=== PATIENT | male | born 2000 | race Two or more races ===

== ENCOUNTER 2020-06-30 16:28 | Emergency (ER) | payer SELFPAY ==
[2020-06-30] MEDS ORDERED: Ondansetron 4 MG Tab.DIS PO ONE (17:14)
[2020-06-30] MEDS ORDERED: Bacitracin Oint 1 GM U/D Packet TOP ONE (17:14)
[2020-06-30] MEDS ORDERED: Lidocaine 1% with EPINEPHrine 1:100,000 50 ML MDV INJECT ONE (17:14)
[2020-06-30] MEDS ORDERED: Acetaminophen 325 MG Tab PO ONE (17:14)
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
[2020-06-30 17:16] VITALS: BP 125/81; PULSE 71
--- NOTE | 2020-07-02 10:10 | CR ---
Wrist Comp Min 3V Lt CLINICAL HISTORY: Fall FINDINGS: There is a nondisplaced fracture through the waist of the scaphoid. IMPRESSION: Nondisplaced scaphoid fracture
== END 2020-06-30 19:45 | disposition home or self-care (01) ==
LOC: JP.ED 16:28
DX: S09.90XA Unspecified injury of head, initial encounter (principal); S62.002A Unspecified fracture of navicular [scaphoid] bone of left wrist, initial encounter for closed fracture; S01.81XA Laceration without foreign body of other part of head, initial encounter; F17.210 Nicotine dependence, cigarettes, uncomplicated; Z88.0 Allergy status to penicillin; V00.131A Fall from skateboard, initial encounter; Y93.51 Activity, roller skating (inline) and skateboarding; Y92.830 Public park as the place of occurrence of the external cause
CPT/HCPCS: 12013; 73110; 99284; A9270; 99283

== ENCOUNTER 2020-10-21 07:13 | Emergency (ER) | payer MEDICAID ==
[2020-10-21 07:46] VITALS: BP 129/84; PULSE 111
[2020-10-21] MEDS ORDERED: Acetaminophen 325 MG Tab PO ONE (08:05)
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
--- NOTE | 2020-10-22 10:06 | CR ---
Knee 3V Lt CLINICAL HISTORY: Pain, trauma FINDINGS: No acute fracture or dislocation is noted. There are no osseous lesions. Articular surfaces are smooth. Impression: Negative
== END 2020-10-21 08:36 | disposition home or self-care (01) ==
LOC: JP.ED 07:13
DX: S86.912A Strain of unspecified muscle(s) and tendon(s) at lower leg level, left leg, initial encounter (principal); F17.210 Nicotine dependence, cigarettes, uncomplicated; Z88.0 Allergy status to penicillin; Y04.0XXA Assault by unarmed brawl or fight, initial encounter
CPT/HCPCS: 73562; 99282; 99283; A9270

== ENCOUNTER 2021-02-19 22:17 | Emergency (ER) | payer MEDICAID ==
[2021-02-19 22:28] VITALS: BP 138/94; PULSE 104
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
== END 2021-02-19 23:23 | disposition home or self-care (01) ==
LOC: JP.ED 22:17
DX: K02.9 Dental caries, unspecified (principal); Z88.0 Allergy status to penicillin
CPT/HCPCS: 99282

== ENCOUNTER 2021-06-27 15:55 | Emergency (ER) | payer MEDICAID ==
[2021-06-27] MEDS ORDERED: Sodium Chloride 0.9% 10 ML Syringe FLUSH PRN (16:17)
[2021-06-27] MEDS ORDERED: Haloperidol Lactate 5 MG/ML SDV IVPUSH ONE (16:17)
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
[2021-06-27] MEDS ORDERED: Sodium Chloride 0.9% 1,000 ML IV SCH (16:30)
[2021-06-27 18:18] VITALS: BP 121/71; PULSE 76
== END 2021-06-27 18:21 | disposition home or self-care (01) ==
LOC: JP.ED 15:55
DX: R11.2 Nausea with vomiting, unspecified (principal); R10.13 Epigastric pain; E87.6 Hypokalemia; Z88.0 Allergy status to penicillin; Z72.0 Tobacco use; Z20.822 Contact with and (suspected) exposure to COVID-19
CPT/HCPCS: 36415; 80053; 83690; 85025; 87635; 96374; 99284; J1630; J7030; U0002

== ENCOUNTER 2021-07-17 02:14 | Emergency (ER) | payer MEDICAID ==
[2021-07-17] MEDS ORDERED: LORazepam 2 MG/ML SDV ONE (02:47)
[2021-07-17] MEDS ORDERED: HYDROmorphone 0.5 MG/0.5 ML Syringe ONE (02:48)
[2021-07-17] MEDS ORDERED: Ondansetron 4 MG/2 ML SDV ONE (02:49)
[2021-07-17] MEDS ORDERED: Sodium Chloride 0.9% 1,000 ML IV ONE ×2 (02:50→03:50)
[2021-07-17] MEDS ORDERED: Ondansetron 4 MG/2 ML SDV IVPUSH ONE (02:53)
[2021-07-17] MEDS ORDERED: LORazepam 2 MG/ML SDV IVPUSH ONE (03:00)
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
== END 2021-07-17 07:34 | disposition home or self-care (01) ==
LOC: JP.ED 02:14
DX: F45.8 Other somatoform disorders (principal); R11.2 Nausea with vomiting, unspecified; Z88.0 Allergy status to penicillin
CPT/HCPCS: 36415; 80053; 80305; 81001; 83690; 85027; 96374; 96375; 99284; J2060; J2405; J7030

== ENCOUNTER 2023-04-27 15:16 | Emergency (ER) | payer MEDICAID ==
[2023-04-27 16:47] VITALS: BP 146/95; PULSE 104
[2023-04-27] MEDS ORDERED: Sodium Chloride 0.9% 10 ML Syringe FLUSH PRN (17:04)
[2023-04-27] MEDS ORDERED: Sodium Chloride 0.9% 1,000 ML IV ONE (17:05)
[2023-04-27] MEDS ORDERED: Ondansetron 4 MG/2 ML SDV IVPUSH ONE (17:05)
[2023-04-27 17:16] LABS: BASOPHILS ABSOLUTE AUTO 0.09 K/uL (0.00-0.10); BASOPHILS PERCENT AUTO 0.3 % (0.1-1.3); EOSINOPHILS PERCENT AUTO 0.1 % (0.0-5.4); HEMATOCRIT 52.9 % (38.4-49.7); IMMATURE GRAN ABSOLUTE AUTO 0.19 K/uL (0.00-0.23); IMMATURE GRAN PERCENT AUTO 0.7 % (0.0-0.7); LYMPHOCYTES ABSOLUTE AUTO 1.35 K/uL (0.8-3.3); LYMPHOCYTES PERCENT AUTO 5.1 % (11.4-47.7); MEAN CORPUSCULAR HGB CONC 34.2 g/dL (31.6-35.5); MEAN CORPUSCULAR VOLUME 90.7 fL (81.4-99.0); MONOCYTES ABSOLUTE AUTO 1.48 K/uL (0.20-0.90); MONOCYTES PERCENT AUTO 5.5 % (3.3-12.6); NEUTROPHILS ABSOLUTE AUTO 23.59 K/uL (1.0-7.6); NEUTROPHILS PERCENT AUTO 88.3 % (40.0-78.1); PLATELET COUNT,PLT 328 K/uL (130-375); RED BLOOD CELL COUNT 5.83 M/uL (4.14-5.76); WHITE BLOOD CELL COUNT,WBC 26.7 K/uL (3.2-11.0)
[2023-04-27 17:17] LABS: EOSINOPHILS ABSOLUTE AUTO 0.02 K/uL (0.00-0.40); HEMOGLOBIN 18.1 g/dL (12.9-16.9)
[2023-04-27 17:37] LABS: A/G RATIO 1.2 (1.2-2.2); ALANINE AMINOTRANSFERASE,ALT 34 U/L (12-78); ALBUMIN 5.1 g/dL (3.4-5.0); ALKALINE PHOSPHATASE 116 U/L (46-116); ASPARTATE AMNIOTRANSFERASE,AST 33 U/L (15-37); BILIRUBIN TOTAL 1.2 mg/dL (0.2-1.0); BLOOD UREA NITROGEN,BUN 17 mg/dL (7-18); CALCIUM 10.7 mg/dL (8.5-10.1); CHLORIDE,CL 88 mmol/L (100-108); CREATININE 1.6 mg/dL (0.8-1.3); EST CRCL DRUG DOSING (CG) 55.28 mL/min; ESTIMATED GFR 62 mL/min (>60); GLUCOSE RANDOM 176 mg/dL (74-106); POTASSIUM,K 4.3 mmol/L (3.6-5.2); PROTEIN TOTAL,TP 9.3 g/dL (6.4-8.2); SODIUM,NA 138 mmol/L (140-148)
[2023-04-27 17:44] LABS: ANION GAP 39.3 mmol/L (5.0-14.0); CARBON DIOXIDE,CO2 15 mmol/L (21-32)
[2023-04-27 18:01] LABS: HEMOGLOBIN A1C 5.2 % (4.5-6.2)
[2023-04-27 18:03] LABS: BASE EXCESS VENOUS -8.7 mm/L; BICARBONATE,VENOUS 14.2 mmol/L; CARBOXYHEMOGLOBIN 2.3 % (0.0-1.6); METHEMOGLOBIN 0.9 %; O2 SATURATION VENOUS 85.1; OXYHEMOGLOBIN 82.4 %; PCO2 VENOUS 24.9 mm/Hg; PH,VENOUS 7.375 (7.350-7.450); TOTAL HEMOGLOBIN 17.7 g/dL (13.5-18.0)
[2023-04-27] MEDS ORDERED: Metoclopramide 10 MG/2 ML SDV IV ONE (18:28)
[2023-04-27] MEDS ORDERED: Sodium Chloride 0.9% 50 ML IV SCH (18:30)
[2023-04-27] MEDS ORDERED: Iopamidol 612 MG/ML 100 ML Bottle IV SCH (18:30)
[2023-04-27] MEDS ORDERED: Sodium Chloride 0.9% 1,000 ML IV SCH (18:30)
[2023-04-27 18:50] LABS: APPEARANCE,URINE CLEAR (CLEAR); BILIRUBIN,URINE MODERATE (NEGATIVE); COLOR,URINE YELLOW (YELLOW); GLUCOSE,URINE NEGATIVE (NEGATIVE); KETONES,URINE 80 mg/dL (NEGATIVE); LEUKOCYTE ESTERASE,URINE NEGATIVE (NEGATIVE); NITRITE,URINE NEGATIVE (NEGATIVE); OCCULT BLOOD,URINE TRACE-LYSED (NEGATIVE); PH,URINE 5.5 (5.0-8.0); PROTEIN,URINE 100 mg/dL (NEGATIVE); UROBILINOGEN,URINE 0.2 EU/dL (0.2-1.0)
[2023-04-27 18:55] LABS: WBC,URINE 0-5 (0-5)
[2023-04-27 18:56] LABS: AMORPHOUS SEDIMENT,URINE FEW; BACTERIA,URINE FEW; EPITHELIAL CELLS,URINE RARE; MUCUS,URINE RARE
[2023-04-27] MEDS ORDERED: Metoclopramide 10 MG Tab PO ONE (20:26)
== END 2023-04-27 21:01 | disposition home or self-care (01) ==
LOC: JP.ED 15:16
DX: A08.4 Viral intestinal infection, unspecified (principal); F17.210 Nicotine dependence, cigarettes, uncomplicated; Z88.0 Allergy status to penicillin; Z79.899 Other long term (current) drug therapy
CPT/HCPCS: 36415; 74177; 80053; 81001; 82803; 83036; 83605; 85025; 87040; 87635; 96361; 96374; 96375; 99284; A9270; J2405; J2765; J3490; J7030; Q9967; U0002

== ENCOUNTER 2023-07-05 12:46 | Emergency (ER) | payer MEDICAID ==
[2023-07-05] MEDS ORDERED: Sodium Chloride 0.9% 1,000 ML IV ONE ×2 (14:31→15:14)
[2023-07-05] MEDS ORDERED: Metoclopramide 10 MG/2 ML SDV IVPUSH ONE (14:31)
[2023-07-05] MEDS ORDERED: Sodium Chloride 0.9% 10 ML Syringe FLUSH PRN (14:31)
[2023-07-05 14:42] LABS: BASOPHILS ABSOLUTE AUTO 0.06 K/uL (0.00-0.10); BASOPHILS PERCENT AUTO 0.3 % (0.1-1.3); HEMATOCRIT 54.6 % (38.4-49.7); IMMATURE GRAN ABSOLUTE AUTO 0.12 K/uL (0.00-0.23); IMMATURE GRAN PERCENT AUTO 0.5 % (0.0-0.7); LYMPHOCYTES ABSOLUTE AUTO 2.59 K/uL (0.8-3.3); LYMPHOCYTES PERCENT AUTO 11.2 % (11.4-47.7); MEAN CORPUSCULAR HEMOGLOBIN 31.2 pg (31.6-35.5); MEAN CORPUSCULAR HGB CONC 36.4 g/dL (31.6-35.5); MEAN CORPUSCULAR VOLUME 85.6 fL (81.4-99.0); MONOCYTES ABSOLUTE AUTO 1.51 K/uL (0.20-0.90); MONOCYTES PERCENT AUTO 6.5 % (3.3-12.6); NEUTROPHILS PERCENT AUTO 81.5 % (40.0-78.1); PLATELET COUNT,PLT 351 K/uL (130-375); RED BLOOD CELL COUNT 6.38 M/uL (4.14-5.76); WHITE BLOOD CELL COUNT,WBC 23.1 K/uL (3.2-11.0)
[2023-07-05 14:44] LABS: HEMOGLOBIN 19.9 g/dL (12.9-16.9)
[2023-07-05 15:05] LABS: ALANINE AMINOTRANSFERASE,ALT 20 U/L (12-78); ALBUMIN 4.9 g/dL (3.4-5.0); ALKALINE PHOSPHATASE 98 U/L (46-116); ASPARTATE AMNIOTRANSFERASE,AST 20 U/L (15-37); BILIRUBIN TOTAL 0.7 mg/dL (0.2-1.0); BLOOD UREA NITROGEN,BUN 50 mg/dL (7-18); C-REACTIVE PROTEIN 0.68 mg/dL (0.0-0.3); CALCIUM 10.2 mg/dL (8.5-10.1); CARBON DIOXIDE,CO2 27 mmol/L (21-32); CHLORIDE,CL 83 mmol/L (100-108); EST CRCL DRUG DOSING (CG) 17.75 mL/min; ESTIMATED GFR 15 mL/min (>60); GLUCOSE RANDOM 114 mg/dL (74-106); POTASSIUM,K 3.8 mmol/L (3.6-5.2); PROTEIN TOTAL,TP 9.6 g/dL (6.4-8.2); SODIUM,NA 125 mmol/L (140-148)
[2023-07-05 15:06] LABS: ANION GAP 18.8 mmol/L (5.0-14.0)
[2023-07-05 15:07] LABS: CREATININE 5.1 mg/dL (0.8-1.3)
[2023-07-05 16:56] LABS: MAGNESIUM 3.1 mg/dL (1.8-2.4); PHOSPHORUS 7.7 mg/dL (2.5-4.9)
[2023-07-05 17:27] LABS: BILIRUBIN,URINE MODERATE (NEGATIVE); COLOR,URINE YELLOW (YELLOW); GLUCOSE,URINE NEGATIVE (NEGATIVE); KETONES,URINE TRACE mg/dL (NEGATIVE); LEUKOCYTE ESTERASE,URINE NEGATIVE (NEGATIVE); NITRITE,URINE NEGATIVE (NEGATIVE); OCCULT BLOOD,URINE TRACE-INTACT (NEGATIVE); PROTEIN,URINE >=300 mg/dL (NEGATIVE); UROBILINOGEN,URINE 0.2 EU/dL (0.2-1.0)
[2023-07-05 17:36] LABS: CALCIUM 8.6 mg/dL (8.5-10.1); EST CRCL DRUG DOSING (CG) 22.08 mL/min; POTASSIUM,K 3.8 mmol/L (3.6-5.2)
[2023-07-05 17:38] LABS: ANION GAP 14.8 mmol/L (5.0-14.0); CREATININE 4.1 mg/dL (0.8-1.3)
[2023-07-05 17:41] LABS: AMORPHOUS SEDIMENT,URINE RARE; APPEARANCE,URINE CLOUDY (CLEAR); BACTERIA,URINE MANY; EPITHELIAL CELLS,URINE FEW; MUCUS,URINE MODERATE
[2023-07-05 17:42] LABS: AMPHETAMINES SCREEN, URINE NEGATIVE (NEGATIVE); BARBITURATE SCREEN,URINE NEGATIVE (NEGATIVE); BENZODIAZEPINES SCREEN,URINE NEGATIVE (NEGATIVE); METHADONE SCREEN, URINE NEGATIVE (NEGATIVE); METHAMPHETAMINES SCREEN, URINE NEGATIVE (NEGATIVE); OXYCODONE SCREEN,URINE NEGATIVE (NEGATIVE); PROPOXYPHENE SCREEN,URINE NEGATIVE (NEGATIVE); THC SCREEN,URINE 50 NG/ML PRESUMPTIVE POSITIVE (NEGATIVE)
[2023-07-05 18:04] LABS: PROTEIN,URINE RANDOM 238.7 mg/dL (6.0-11.9)
[2023-07-05 18:05] LABS: CREATININE,URINE RAND 502.5 mg/dL (20.0-370.0)
[2023-07-05 18:28] VITALS: BP 117/78; PULSE 90
== END 2023-07-05 18:28 | disposition home or self-care (01) ==
LOC: JP.ED 12:46
DX: N17.9 Acute kidney failure, unspecified (principal); Q63.1 Lobulated, fused and horseshoe kidney; R80.9 Proteinuria, unspecified; Z88.0 Allergy status to penicillin; F17.210 Nicotine dependence, cigarettes, uncomplicated
CPT/HCPCS: 36415; 74176; 80048; 80053; 80305; 81001; 82550; 82570; 83605; 83735; 84100; 84156; 84300; 84550; 85025; 86140; 86160; 87086; 96361; 96374; 99284; J2765; J3490; J7030

== ENCOUNTER 2024-01-14 22:44 | Emergency (ER) | payer MEDICAID ==
[2024-01-15 01:36] LABS: BASOPHILS PERCENT AUTO 0.1 % (0.1-1.3); HEMOGLOBIN 17.4 g/dL (12.9-16.9); IMMATURE GRAN ABSOLUTE AUTO 0.04 K/uL (0.00-0.23); IMMATURE GRAN PERCENT AUTO 0.2 % (0.0-0.7); LYMPHOCYTES ABSOLUTE AUTO 1.57 K/uL (0.8-3.3); LYMPHOCYTES PERCENT AUTO 9.6 % (11.4-47.7); MEAN CORPUSCULAR HEMOGLOBIN 31.1 pg (31.6-35.5); MEAN CORPUSCULAR HGB CONC 34.8 g/dL (31.6-35.5); MEAN CORPUSCULAR VOLUME 89.4 fL (81.4-99.0); MONOCYTES ABSOLUTE AUTO 1.01 K/uL (0.20-0.90); MONOCYTES PERCENT AUTO 6.2 % (3.3-12.6); NEUTROPHILS ABSOLUTE AUTO 13.76 K/uL (1.0-7.6); NEUTROPHILS PERCENT AUTO 83.9 % (40.0-78.1); PLATELET COUNT,PLT 340 K/uL (130-375); RED BLOOD CELL COUNT 5.59 M/uL (4.14-5.76); WHITE BLOOD CELL COUNT,WBC 16.4 K/uL (3.2-11.0)
[2024-01-15] MEDS: Sodium Chloride 0.9% 1,000 ML IV SCH ×2 (01:36→02:39)
[2024-01-15 01:47] LABS: A/G RATIO 1.2 (1.2-2.2); ALANINE AMINOTRANSFERASE,ALT 26 U/L (12-78); ALKALINE PHOSPHATASE 93 U/L (46-116); ASPARTATE AMNIOTRANSFERASE,AST 25 U/L (15-37); BILIRUBIN TOTAL 0.7 mg/dL (0.2-1.0); BLOOD UREA NITROGEN,BUN 13 mg/dL (7-18); CALCIUM 10.7 mg/dL (8.5-10.1); CARBON DIOXIDE,CO2 27 mmol/L (21-32); CHLORIDE,CL 95 mmol/L (100-108); CREATININE 1.3 mg/dL (0.8-1.3); ESTIMATED GFR 79 mL/min (>60); GLUCOSE RANDOM 141 mg/dL (74-106); POTASSIUM,K 3.4 mmol/L (3.6-5.2); PROTEIN TOTAL,TP 9.3 g/dL (6.4-8.2); SODIUM,NA 140 mmol/L (140-148)
[2024-01-15 01:54] LABS: ANION GAP 21.4 mmol/L (5.0-14.0); C-REACTIVE PROTEIN < 0.50 mg/dL (<0.50)
[2024-01-15 01:55] LABS: BASOPHILS ABSOLUTE AUTO 0.02 K/uL (0.00-0.10)
[2024-01-15] MEDS: Magnesium Oxide 400 MG Tab PO ONE (02:34)
[2024-01-15] MEDS ORDERED: Ondansetron 4 MG/2 ML SDV IVPUSH ONE (02:52)
[2024-01-15] MEDS: Sodium Chloride 0.9% 80 ML IV STA (04:19)
[2024-01-15] MEDS: Iopamidol 612 MG/ML 100 ML Bottle IV STA (04:19)
[2024-01-15 04:45] VITALS: BP 119/68; PULSE 89
[2024-01-15 05:04] LABS: APPEARANCE,URINE CLEAR (CLEAR); BILIRUBIN,URINE MODERATE (NEGATIVE); COLOR,URINE YELLOW (YELLOW); GLUCOSE,URINE NEGATIVE (NEGATIVE); KETONES,URINE 40 mg/dL (NEGATIVE); LEUKOCYTE ESTERASE,URINE NEGATIVE (NEGATIVE); NITRITE,URINE NEGATIVE (NEGATIVE); OCCULT BLOOD,URINE TRACE-INTACT (NEGATIVE); PH,URINE 5.5 (5.0-8.0); PROTEIN,URINE >=300 mg/dL (NEGATIVE); UROBILINOGEN,URINE 0.2 EU/dL (0.2-1.0)
[2024-01-15 05:24] LABS: AMORPHOUS SEDIMENT,URINE MODERATE; BACTERIA,URINE FEW; EPITHELIAL CELLS,URINE FEW; MUCUS,URINE NOT SEEN; RBC,URINE 0-5 (0-5); WBC,URINE 0-5 (0-5)
== END 2024-01-15 05:44 | disposition home or self-care (01) ==
LOC: JP.ED 22:44
DX: A08.4 Viral intestinal infection, unspecified (principal); F17.210 Nicotine dependence, cigarettes, uncomplicated; Z88.0 Allergy status to penicillin
CPT/HCPCS: 36415; 71260; 74177; 80053; 81001; 83605; 83690; 83735; 85025; 86140; 96360; 96361; 99284; A9270; J3490; J7030; Q9967

== ENCOUNTER 2024-02-18 03:14 | Emergency (ER) | payer SELFPAY ==
[2024-02-18] MEDS: Sodium Chloride 0.9% 1,000 ML IV ONE ×3 (03:35→05:33)
[2024-02-18 03:37] LABS: BASOPHILS ABSOLUTE AUTO 0.07 K/uL (0.00-0.10); BASOPHILS PERCENT AUTO 0.4 % (0.1-1.3); EOSINOPHILS PERCENT AUTO 0.1 % (0.0-5.4); HEMOGLOBIN 17.4 g/dL (12.9-16.9); IMMATURE GRAN ABSOLUTE AUTO 0.07 K/uL (0.00-0.23); IMMATURE GRAN PERCENT AUTO 0.4 % (0.0-0.7); LYMPHOCYTES ABSOLUTE AUTO 1.18 K/uL (0.8-3.3); LYMPHOCYTES PERCENT AUTO 6.9 % (11.4-47.7); MEAN CORPUSCULAR HEMOGLOBIN 31.5 pg (31.6-35.5); MEAN CORPUSCULAR HGB CONC 35.5 g/dL (31.6-35.5); MEAN CORPUSCULAR VOLUME 88.8 fL (81.4-99.0); MONOCYTES ABSOLUTE AUTO 0.68 K/uL (0.20-0.90); NEUTROPHILS ABSOLUTE AUTO 15.18 K/uL (1.0-7.6); NEUTROPHILS PERCENT AUTO 88.2 % (40.0-78.1); PLATELET COUNT,PLT 351 K/uL (130-375); RED BLOOD CELL COUNT 5.52 M/uL (4.14-5.76); WHITE BLOOD CELL COUNT,WBC 17.2 K/uL (3.2-11.0)
[2024-02-18 03:38] LABS: EOSINOPHILS ABSOLUTE AUTO 0.02 K/uL (0.00-0.40)
[2024-02-18] MEDS: LORazepam 2 MG/ML SDV IVPUSH ONE (03:44)
[2024-02-18] MEDS: droPERidol 5 MG/2 ML SDV IVPUSH ONE (03:47)
[2024-02-18 04:02] LABS: ALANINE AMINOTRANSFERASE,ALT 18 U/L (12-78); ALBUMIN 4.6 g/dL (3.4-5.0); ALKALINE PHOSPHATASE 90 U/L (46-116); ASPARTATE AMNIOTRANSFERASE,AST 15 U/L (15-37); BILIRUBIN TOTAL 0.6 mg/dL (0.2-1.0); BLOOD UREA NITROGEN,BUN 9 mg/dL (7-18); C-REACTIVE PROTEIN 0.76 mg/dL (<0.50); CALCIUM 10.7 mg/dL (8.5-10.1); CARBON DIOXIDE,CO2 20 mmol/L (21-32); CHLORIDE,CL 100 mmol/L (100-108); CREATININE 2.2 mg/dL (0.8-1.3); EST CRCL DRUG DOSING (CG) 43.18 mL/min; ESTIMATED GFR 42 mL/min (>60); GLUCOSE RANDOM 158 mg/dL (74-106); POTASSIUM,K 3.2 mmol/L (3.6-5.2); SODIUM,NA 142 mmol/L (140-148); TROPONIN I HIGH SENSITIVITY 6.4 pg/mL (<=60.3)
[2024-02-18 04:04] LABS: A/G RATIO 1.1 (1.2-2.2); ANION GAP 25.2 mmol/L (5.0-14.0)
[2024-02-18 04:05] LABS: LACTIC ACID 5.1 mmol/L (0.4-2.0)
[2024-02-18 04:20] LABS: CORONAVIRUS COVID-19 NAA NEGATIVE (NEGATIVE); INFLUENZA A NAA NEGATIVE (NEGATIVE); INFLUENZA B NAA NEGATIVE (NEGATIVE); RESPIRATORY SYNCYTIAL VIR NAA NEGATIVE (NEGATIVE)
[2024-02-18 06:00] LABS: ANION GAP 10.2 mmol/L (5.0-14.0); CALCIUM 8.7 mg/dL (8.5-10.1); CREATININE 1.6 mg/dL (0.8-1.3); EST CRCL DRUG DOSING (CG) 59.38 mL/min; POTASSIUM,K 3.6 mmol/L (3.6-5.2)
[2024-02-18 06:10] VITALS: BP 99/52; PULSE 95
== END 2024-02-18 09:12 | disposition home or self-care (01) ==
LOC: JP.ED 03:14
DX: F50.89 Other specified eating disorder (principal); F45.8 Other somatoform disorders; F17.210 Nicotine dependence, cigarettes, uncomplicated; Z88.0 Allergy status to penicillin; Z68.1 Body mass index [BMI] 19.9 or less, adult
CPT/HCPCS: 0241U; 36415; 80048; 80053; 83605; 84145; 84484; 85025; 86140; 96361; 96374; 96375; 99285; J1790; J2060; J7030; 93010; 99284

== ENCOUNTER 2024-07-21 14:47 | Emergency (ER) | payer SELFPAY ==
[2024-07-21 15:21] LABS: BASOPHILS ABSOLUTE AUTO 0.14 K/uL (0.00-0.10); BASOPHILS PERCENT AUTO 0.8 % (0.1-1.3); EOSINOPHILS ABSOLUTE AUTO 0.05 K/uL (0.00-0.40); EOSINOPHILS PERCENT AUTO 0.3 % (0.0-5.4); HEMATOCRIT 47.3 % (38.4-49.7); HEMOGLOBIN 16.5 g/dL (12.9-16.9); IMMATURE GRAN ABSOLUTE AUTO 0.17 K/uL (0.00-0.23); IMMATURE GRAN PERCENT AUTO 0.9 % (0.0-0.7); LYMPHOCYTES ABSOLUTE AUTO 3.12 K/uL (0.8-3.3); LYMPHOCYTES PERCENT AUTO 17.2 % (11.4-47.7); MEAN CORPUSCULAR HGB CONC 34.9 g/dL (31.6-35.5); MEAN CORPUSCULAR VOLUME 91.8 fL (81.4-99.0); MONOCYTES ABSOLUTE AUTO 0.81 K/uL (0.20-0.90); MONOCYTES PERCENT AUTO 4.5 % (3.3-12.6); NEUTROPHILS ABSOLUTE AUTO 13.87 K/uL (1.0-7.6); NEUTROPHILS PERCENT AUTO 76.3 % (40.0-78.1); PLATELET COUNT,PLT 421 K/uL (130-375); RED BLOOD CELL COUNT 5.15 M/uL (4.14-5.76); WHITE BLOOD CELL COUNT,WBC 18.2 K/uL (3.2-11.0)
[2024-07-21] MEDS: Ondansetron 4 MG/2 ML SDV IVPUSH ONE (15:36)
[2024-07-21] MEDS: Sodium Chloride 0.9% 1,000 ML IV STA ×2 (15:36→18:21)
[2024-07-21 15:42] LABS: A/G RATIO 0.9 (1.2-2.2); ALANINE AMINOTRANSFERASE,ALT 22 U/L (12-78); ALBUMIN 4.1 g/dL (3.4-5.0); ALKALINE PHOSPHATASE 89 U/L (46-116); ASPARTATE AMNIOTRANSFERASE,AST 19 U/L (15-37); BILIRUBIN TOTAL 0.5 mg/dL (0.2-1.0); BLOOD UREA NITROGEN,BUN 11 mg/dL (7-18); CALCIUM 10.4 mg/dL (8.5-10.1); CARBON DIOXIDE,CO2 23 mmol/L (21-32); CHLORIDE,CL 106 mmol/L (100-108); ESTIMATED GFR 108 mL/min (>60); GLUCOSE RANDOM 125 mg/dL (74-106); POTASSIUM,K 3.3 mmol/L (3.6-5.2); PROTEIN TOTAL,TP 8.7 g/dL (6.4-8.2); SODIUM,NA 147 mmol/L (140-148)
[2024-07-21 15:45] LABS: ANION GAP 21.3 mmol/L (5.0-14.0)
[2024-07-21] MEDS: droPERidol 5 MG/2 ML SDV IVPUSH ONE (17:35)
[2024-07-21] MEDS: LORazepam 2 MG/ML SDV IVPUSH ONE (18:23)
[2024-07-21 19:28] VITALS: PULSE 77
[2024-07-21 19:32] VITALS: BP 106/59
== END 2024-07-21 20:07 | disposition home or self-care (01) ==
LOC: JP.ED 14:47
DX: R11.15 Cyclical vomiting syndrome unrelated to migraine (principal); F17.210 Nicotine dependence, cigarettes, uncomplicated; Z88.0 Allergy status to penicillin
CPT/HCPCS: 36415; 80053; 85025; 96361; 96374; 96375; 99284; J1790; J2060; J2405; J7030

== ENCOUNTER 2024-09-09 01:37 | Emergency (ER) | payer SELFPAY ==
[2024-09-09] MEDS: Magnesium Oxide 400 MG Tab PO ONE (02:11)
[2024-09-09] MEDS: droPERidol 5 MG/2 ML SDV IVPUSH ONE (02:11)
[2024-09-09] MEDS: Lactated Ringers 1,000 ML IV SCH (02:11)
[2024-09-09 02:17] LABS: BASOPHILS ABSOLUTE AUTO 0.09 K/uL (0.00-0.10); BASOPHILS PERCENT AUTO 0.3 % (0.1-1.3); HEMATOCRIT 58.8 % (38.4-49.7); IMMATURE GRAN ABSOLUTE AUTO 0.26 K/uL (0.00-0.23); IMMATURE GRAN PERCENT AUTO 0.9 % (0.0-0.7); LYMPHOCYTES ABSOLUTE AUTO 2.52 K/uL (0.8-3.3); LYMPHOCYTES PERCENT AUTO 8.8 % (11.4-47.7); MEAN CORPUSCULAR HEMOGLOBIN 31.5 pg (31.6-35.5); MEAN CORPUSCULAR HGB CONC 34.7 g/dL (31.6-35.5); MEAN CORPUSCULAR VOLUME 90.7 fL (81.4-99.0); NEUTROPHILS ABSOLUTE AUTO 23.52 K/uL (1.0-7.6); PLATELET COUNT,PLT 411 K/uL (130-375); RED BLOOD CELL COUNT 6.48 M/uL (4.14-5.76); WHITE BLOOD CELL COUNT,WBC 28.7 K/uL (3.2-11.0)
[2024-09-09 02:21] LABS: EOSINOPHILS ABSOLUTE AUTO 0.01 K/uL (0.00-0.40); HEMOGLOBIN 20.4 g/dL (12.9-16.9)
[2024-09-09 02:41] LABS: BLOOD UREA NITROGEN,BUN 25 mg/dL (7-18); CARBON DIOXIDE,CO2 17 mmol/L (21-32); CHLORIDE,CL 86 mmol/L (100-108); EST CRCL DRUG DOSING (CG) 16.45 mL/min; GLUCOSE RANDOM 256 mg/dL (74-106); MAGNESIUM 2.2 mg/dL (1.8-2.4); POTASSIUM,K 3.4 mmol/L (3.6-5.2); SODIUM,NA 135 mmol/L (140-148)
[2024-09-09 02:49] LABS: ESTIMATED GFR 15 mL/min (>60)
[2024-09-09] MEDS ORDERED: Lactated Ringers 1,000 ML IV SCH (03:00)
[2024-09-09 03:18] LABS: ANION GAP 35.4 mmol/L (5.0-14.0); C-REACTIVE PROTEIN < 0.50 mg/dL (<0.50)
[2024-09-09 03:19] LABS: CALCIUM 12.3 mg/dL (8.5-10.1); CREATININE 5.3 mg/dL (0.8-1.3)
[2024-09-09] MEDS: cefTRIAXone 2 GM in Sodium Chloride 0.9% 50 ML IV ONE (03:24)
[2024-09-09] MEDS: VANCOmycin 1 GM in Sodium Chloride 0.9% 250 ML IV ONE (03:24)
[2024-09-09] MEDS: Sodium Chloride 0.9% 1,000 ML IV SCH (03:24)
[2024-09-09] MEDS: Iopamidol 612 MG/ML 100 ML Bottle IV STA (04:29)
[2024-09-09] MEDS: metroNIDAZOLE/Normal Saline 500 MG in Premix Bag 1 BAG IV ONE (04:31)
[2024-09-09] MEDS: Sodium Chloride 0.9% 60 ML IV STA (04:31)
[2024-09-09 09:19] VITALS: BP 118/83; PULSE 98
== END 2024-09-09 09:43 | disposition other institution (70) ==
LOC: JP.ED 01:37
DX: N17.9 Acute kidney failure, unspecified (principal); Z88.0 Allergy status to penicillin
CPT/HCPCS: 36415; 71250; 74176; 80048; 83605; 83735; 85025; 86140; 87040; 96361; 96365; 96367; 96368; 96375; 99284; 99285; A9270; J0696; J1790; J1836; J3490; J7030; J7050; J7120

== ENCOUNTER 2024-09-25 11:28 | Emergency (ER) | payer SELFPAY ==
[2024-09-25 12:08] LABS: BASOPHILS ABSOLUTE AUTO 0.13 K/uL (0.00-0.10); BASOPHILS PERCENT AUTO 0.6 % (0.1-1.3); EOSINOPHILS ABSOLUTE AUTO 0.15 K/uL (0.00-0.40); EOSINOPHILS PERCENT AUTO 0.7 % (0.0-5.4); HEMATOCRIT 51.7 % (38.4-49.7); HEMOGLOBIN 17.7 g/dL (12.9-16.9); IMMATURE GRAN ABSOLUTE AUTO 0.13 K/uL (0.00-0.23); IMMATURE GRAN PERCENT AUTO 0.6 % (0.0-0.7); LYMPHOCYTES ABSOLUTE AUTO 2.04 K/uL (0.8-3.3); LYMPHOCYTES PERCENT AUTO 9.6 % (11.4-47.7); MEAN CORPUSCULAR HEMOGLOBIN 32.1 pg (31.6-35.5); MEAN CORPUSCULAR HGB CONC 34.2 g/dL (31.6-35.5); MEAN CORPUSCULAR VOLUME 93.7 fL (81.4-99.0); MONOCYTES ABSOLUTE AUTO 0.49 K/uL (0.20-0.90); MONOCYTES PERCENT AUTO 2.3 % (3.3-12.6); NEUTROPHILS ABSOLUTE AUTO 18.39 K/uL (1.0-7.6); NEUTROPHILS PERCENT AUTO 86.2 % (40.0-78.1); PLATELET COUNT,PLT 366 K/uL (130-375); RED BLOOD CELL COUNT 5.52 M/uL (4.14-5.76); WHITE BLOOD CELL COUNT,WBC 21.3 K/uL (3.2-11.0)
[2024-09-25] MEDS: Sodium Chloride 0.9% 1,000 ML IV SCH ×2 (12:17→13:56)
[2024-09-25] MEDS: LORazepam 2 MG/ML SDV IVPUSH ONE (12:17)
[2024-09-25 12:24] LABS: CALCIUM 10.7 mg/dL (8.5-10.1); CREATININE 1.3 mg/dL (0.8-1.3); EST CRCL DRUG DOSING (CG) 69.4 mL/min; POTASSIUM,K 5.4 mmol/L (3.6-5.2)
[2024-09-25 12:25] LABS: ANION GAP 21.4 mmol/L (5.0-14.0)
[2024-09-25] MEDS: Ondansetron 4 MG/2 ML SDV IVPUSH ONE (13:56)
[2024-09-25 14:09] VITALS: BP 121/77; PULSE 99
[2024-09-25 15:15] LABS: AMPHETAMINES SCREEN, URINE NEGATIVE (NEGATIVE); BARBITURATE SCREEN,URINE NEGATIVE (NEGATIVE); BENZODIAZEPINES SCREEN,URINE PRESUMPTIVE POSITIVE (NEGATIVE); METHADONE SCREEN, URINE NEGATIVE (NEGATIVE); METHAMPHETAMINES SCREEN, URINE NEGATIVE (NEGATIVE); OXYCODONE SCREEN,URINE NEGATIVE (NEGATIVE); PROPOXYPHENE SCREEN,URINE NEGATIVE (NEGATIVE); THC SCREEN,URINE 50 NG/ML PRESUMPTIVE POSITIVE (NEGATIVE)
== END 2024-09-25 15:54 | disposition home or self-care (01) ==
LOC: JP.ED 11:28
DX: R11.2 Nausea with vomiting, unspecified (principal); F12.90 Cannabis use, unspecified, uncomplicated; F17.210 Nicotine dependence, cigarettes, uncomplicated; Z88.0 Allergy status to penicillin
CPT/HCPCS: 36415; 80048; 80305; 83690; 85025; 96361; 96374; 96375; 99284; J2060; J2405; J7030

== ENCOUNTER 2025-09-24 20:34 | Emergency (ER) | payer SELFPAY | END 2025-09-24 20:45 | disposition left against medical advice (07) | LOC: JP.ED 20:34 | DX: Z53.21 Procedure and treatment not carried out due to patient leaving prior to being seen by health care provider (principal) ==